=== PATIENT | female | born 1985 | race Caucasian/White ===

== ENCOUNTER → 2017-05-10 | Outpatient (CLI) | payer BC ==
[~2017-05-10] MED LIST: MTR600X PO; OXYC-57 PO; PRENTAB26 PO
[2017-05-10 16:42] LABS: BASO % 0.1 %; BASO ABS # 0.01 K/uL (0-0.2); EOS % 2.5 %; EOS ABS # 0.24 K/uL (0-0.5); HEMATOCRIT 32.5 % (37-47); IG# 0.04 K/uL (0.00-0.02); LYMPH % 18.4 %; LYMPH ABS # 1.74 K/uL (1.2-3.4); MEAN CORPUSCULAR HEMOGLOBIN 28.4 pg (25-34); MEAN CORPUSCULAR HGB CONC 33.8 g/dl (32-36); MEAN PLATELET VOLUME 9.7 fL (7.4-10.4); MONO ABS # 0.66 K/uL (0.11-0.59); NEUT % 71.6 %; NEUT ABS # 6.77 K/uL (1.4-6.5); PLATELET COUNT 257 K/uL (130-400); RED CELL DISTRIBUTION WIDTH CV 14.6 % (11.5-14.5); RED CELL DISTRIBUTION WIDTH SD 44.7 fL (36.4-46.3); WHITE BLOOD COUNT 9.46 K/uL (4.8-10.8)
[2017-05-10 16:49] LABS: ALT/SGPT 17 U/L (12-78); AST/SGOT 12 U/L (15-37); CREATININE 0.63 mg/dl (0.60-1.20); URIC ACID 3.6 mg/dl (2.6-7.2)
== END | disposition home or self-care (01) ==
LOC: C.LAB1850 15:37
PROVIDERS: ATTEND Obstetrics & Gynecology
DX: O10.919 Unspecified pre-existing hypertension complicating pregnancy, unspecified trimester (principal); Z3A.00 Weeks of gestation of pregnancy not specified

== ENCOUNTER 2017-06-08 16:11 | Observation (INO) | payer BC ==
[~2017-06-08] VITALS: Ht 175.3 cm; Wt 85.0 kg
[2017-06-08 16:43] LABS: BASO % 0.2 %; BASO ABS # 0.02 K/uL (0-0.2); EOS % 1.3 %; EOS ABS # 0.13 K/uL (0-0.5); HEMATOCRIT 33.6 % (37-47); HEMOGLOBIN 11.1 g/dL (12.0-16.0); IG# 0.05 K/uL (0.00-0.02); LYMPH % 17.2 %; LYMPH ABS # 1.72 K/uL (1.2-3.4); MEAN CELL VOLUME 83.6 fL (80-100); MEAN CORPUSCULAR HEMOGLOBIN 27.6 pg (25-34); MEAN PLATELET VOLUME 9.2 fL (7.4-10.4); MONO % 8.5 %; MONO ABS # 0.85 K/uL (0.11-0.59); NEUT % 72.3 %; NEUT ABS # 7.22 K/uL (1.4-6.5); PLATELET COUNT 246 K/uL (130-400); RED CELL DISTRIBUTION WIDTH CV 14.5 % (11.5-14.5); RED CELL DISTRIBUTION WIDTH SD 44.7 fL (36.4-46.3); WHITE BLOOD COUNT 9.99 K/uL (4.8-10.8)
[2017-06-08 17:07] VITALS: Ht 175.3 cm; Wt 85.0 kg
[2017-06-08 17:07] LABS: ALT/SGPT 19 U/L (12-78); AST/SGOT 12 U/L (15-37); CREATININE 0.67 mg/dl (0.60-1.20)
[2017-06-08] MEDS ORDERED: IV FLUIDS COMPLETED PRN (19:15)
--- NOTE | 2017-06-09 20:20 | DISCHARGE SUMMARY ---
ADMISSION DIAGNOSES: 1. A 28-week intrauterine . 2. Chronic hypertension. 3. Gestational diabetes. 4. Elevated blood pressures. DISCHARGE DIAGNOSES: Same. BRIEF HISTORY AND HOSPITAL COURSE: A 31-year-old 4, para 3-0-0-3, who came for her routine visit on 06/08/2017 and was 28-weeks and 5 days gestation. Her blood pressure on arrival was 164/102 followed by a repeat blood pressure after resting of 142/100. She had +1 protein. She was sent for further evaluation to labor and delivery. She was accepted in evaluation by Dr. Mckeon, who performed laboratory testing as well as serial blood pressures. The laboratory testing showed a hemoglobin of 11.1, a platelet count of 246, a creatinine of 0.6. Normal AST and ALT and a protein to creatinine ratio in her urine of 0.1. He discussed the patient's case with maternal medicine at [facility] and they recommended close observation for 24 hours and obtaining a 24-hour urine protein as well as monitoring serial pressures. I came on-call on 06/09/2017 and was informed of the patient's status and the plan. Her blood pressures had improved during her course in labor and delivery. They ranged from 119-143/81-98. Many of these blood pressures were taken sitting. Her total urine protein ended up returning less than 300 mg with a normal creatinine. The patient was completely asymptomatic. The question that had been raised after she was seen in the office on 06/08/2017 and apparently was posed to maternal medicine was whether the patient required initiation of any blood pressure agent. Due to her fairly normal blood pressures, that were consistent with her diagnosis of chronic hypertension, but not severe, no antihypertensive medicines were initiated. The patient was given her discharge instructions to monitor for any signs and symptoms of persistent headache, right upper quadrant pain, sudden worsening swelling, any visual changes. She was to call with any of these concerns or any other obstetric concerns. She already had a plan to see dietary for management of her gestational diabetes, which had been present in her past pregnancies and for which she was to be monitoring her sugars this . She is already undergoing serial ultrasounds for growth. She is aware that plan of care may change to weekly appointments at this point. We will notify her after discussion at our group meeting on Sunday. There was no evidence of worsening chronic hypertension nor superimposed preeclampsia at the end of our evaluation today. MTDD
== END 2017-06-09 19:15 | disposition home or self-care (01) ==
LOC: C.OPB 16:11 → C.LD 16:11 → C.OPB 17:40
PROVIDERS: ADMIT Obstetrics & Gynecology; ATTEND Obstetrics & Gynecology
DX: O10.913 Unspecified pre-existing hypertension complicating pregnancy, third trimester (principal); O24.419 Gestational diabetes mellitus in pregnancy, unspecified control; Z3A.28 28 weeks gestation of pregnancy

== ENCOUNTER → 2017-08-03 | Outpatient (CLI) | payer BC ==
[~2017-08-03] MED LIST changes: -MTR600X PO; -OXYC-57 PO
== END | disposition home or self-care (01) ==
LOC: C.LABSPEC 15:41
PROVIDERS: ATTEND Obstetrics & Gynecology
DX: O09.93 Supervision of high risk pregnancy, unspecified, third trimester (principal); Z3A.00 Weeks of gestation of pregnancy not specified

== ENCOUNTER 2017-08-16 07:56 | Inpatient (IN) | payer BC ==
[~2017-08-16] VITALS: Ht 175.3 cm; Wt 87.3 kg
[2017-08-16] MEDS ORDERED: LACTATED RINGER'S 1000ML 1,000 ML IV PRN (08:03)
[2017-08-16] MEDS ORDERED: LACTATED RINGER'S 1000ML 1,000 ML IV SCH (08:03)
[2017-08-16 08:30] LABS: HEMATOCRIT 32.8 % (37-47); HEMOGLOBIN 11.1 g/dL (12.0-16.0); MEAN CELL VOLUME 81.8 fL (80-100); MEAN CORPUSCULAR HEMOGLOBIN 27.7 pg (25-34); MEAN CORPUSCULAR HGB CONC 33.8 g/dl (32-36); MEAN PLATELET VOLUME 9.8 fL (7.4-10.4); PLATELET COUNT 229 K/uL (130-400); RED CELL DISTRIBUTION WIDTH CV 15.4 % (11.5-14.5); RED CELL DISTRIBUTION WIDTH SD 45.4 fL (36.4-46.3); WHITE BLOOD COUNT 9.51 K/uL (4.8-10.8)
[2017-08-16] MEDS ORDERED: LACTATED RINGER'S 1000ML 500 ML IV PRN (08:41)
[2017-08-16] MEDS ORDERED: OXYTOCIN 30 UNITS/500ML NSS IV PRN ×2 (08:45→13:45)
[2017-08-16 09:13] VITALS: Ht 175.3 cm; Wt 87.3 kg
[2017-08-16 09:19] LABS: ALBUMIN 2.6 gm/dl (3.4-5.0); CALCIUM 8.4 mg/dl (8.5-10.1); CREATININE 0.8 mg/dl (0.60-1.20); POTASSIUM 3.8 mmol/L (3.5-5.1); TOTAL PROTEIN 7.1 gm/dl (6.4-8.2)
[2017-08-16] MEDS ORDERED: LABETALOL HCL 100 MG TAB PO ONE (13:45)
[2017-08-16] MEDS ORDERED: LANOLIN OINT EXT PRN (13:45)
[2017-08-16] MEDS ORDERED: BENZOCAINE 20% AER SPR 82.5 GM CAN EXT PRN (13:45)
[2017-08-16] MEDS ORDERED: OXYCODONE/ACETAMINOPHEN 5-325 TAB PO PRN (13:45)
[2017-08-16] MEDS ORDERED: ACETAMINOPHEN 325 MG TAB PO PRN (13:45)
[2017-08-16] MEDS ORDERED: SUPERCREAM 0.870 % 15GM JAR EXT PRN (13:45)
[2017-08-16] MEDS ORDERED: IBUPROFEN 600 MG TAB PO PRN (13:45)
--- NOTE | 2017-08-16 13:52 | DELIVERY SUMMARY ---
DATE OF OPERATION: 08/16/2017 The patient is a 32-year-old 4 para 3-0-0-3 white female EDC of 08/26/2017 who presents for induction of labor because of chronic hypertension. She was begun on Pitocin and once she was 5 cm dilated and -2 station membranes were ruptured for clear fluid. She then progressed rapidly to full dilation. She pushed effectively over intact perineum for delivery of a viable female . Mouth and nasopharynx were suctioned on the perineum. The rest of the delivered easily, was placed on the mother's abdomen for further attention and stimulation. There was vigorous crying and the infant was moving all four limbs. The cord was then clamped and cut. Placenta was then expressed intact with 3-vessel cord. There was a 200 cc blood loss. There was no appreciable tears or lacerations. Mother and were doing well after delivery. I attest to the content of the Intraoperative Record and any orders documented therein. Any exception s are noted below.
[2017-08-16 16:30] VITALS: BP 142/82; PULSE 80; TEMP 36.6
[2017-08-16 19:20] VITALS: BP 142/82; PULSE 88; TEMP 36.6
[2017-08-16] MEDS: DOCUSATE SODIUM 100 MG CAP PO SCH (19:36)
[2017-08-16] MEDS: LABETALOL HCL 100 MG TAB PO SCH (19:56)
[2017-08-16] MEDS ORDERED: LABETALOL HCL 100 MG TAB PO SCH (20:00)
[2017-08-16 23:00] VITALS: BP 132/84; PULSE 61; TEMP 36.5
[2017-08-17 03:50] VITALS: BP 137/89; PULSE 69; TEMP 36.5
[2017-08-17 05:44] LABS: HEMATOCRIT 29.1 % (37-47); HEMOGLOBIN 9.7 g/dL (12.0-16.0)
--- NOTE | 2017-08-17 06:39 | Progress Note ---
Subjective August 17, 2017. Subjective conversation w/ patient Ambulation: ambulating normally Voiding: no voiding problems Diet Tolerance: Regular Diet Lochia: Moderate Feeding Type: Breast Feeding Pain: 1/10 abdominal cramping with breast feeding Review of Systems Constitutional: No fever, No chills Respiratory: No shortness of breath Cardiac: No chest pain Abdomen: No nausea, No vomiting Objective Vital Signs Date Time Temp Pulse Resp B/P (MAP) Pulse Ox O2 Delivery O2 Flow Rate FiO2 08/17/17 03:50 36.5 69 18 137/89 (105) Room Air 08/16/17 23:00 36.5 61 18 132/84 (100) Room Air 08/16/17 23:00 Room Air 08/16/17 19:20 36.6 88 18 142/82 (102) Room Air 08/16/17 16:30 36.6 80 20 142/82 (102) Room Air 08/16/17 16:30 Room Air Physical Exam General Appearance: WELL-APPEARING, WD/WN, NO APPARENT DISTRESS Abdomen: soft Fundus: Firm, Non-Tender, Relation to Umbilicus (at u) Extremities: no pedal edema, no calf tenderness Laboratory Results Last 24 Hours Test 08/16/17 08:18 08/17/17 05:26 White Blood Count 9.51 K/uL Red Blood Count 4.01 M/uL Hemoglobin 11.1 g/dL 9.7 g/dL Hematocrit 32.8 % 29.1 % Mean Corpuscular Volume 81.8 fL Mean Corpuscular Hemoglobin 27.7 pg Mean Corpuscular Hemoglobin Concent 33.8 g/dl RDW Standard Deviation 45.4 fL RDW Coefficient of Variation 15.4 % Platelet Count 229 K/uL Mean Platelet Volume 9.8 fL Sodium Level 140 mmol/L Potassium Level 3.8 mmol/L Chloride Level 111 mmol/L Carbon Dioxide Level 22 mmol/L Anion Gap 7.0 mmol/L Blood Urea Nitrogen 9 mg/dl Creatinine 0.80 mg/dl Est Creatinine Clear Calc Drug Dose 117.9 ml/min Estimated GFR () 112.3 Estimated GFR (Non- 96.9 BUN/Creatinine Ratio 11.8 Random Glucose 75 mg/dl Calcium Level 8.4 mg/dl Total Bilirubin 0.3 mg/dl Aspartate Amino Transf (AST/SGOT) 19 U/L Alanine Aminotransferase (ALT/SGPT) 19 U/L Alkaline Phosphatase 143 U/L Total Protein 7.1 gm/dl Albumin 2.6 gm/dl Globulin 4.5 gm/dl Albumin/Globulin Ratio 0.6 Assessment and Plan Post- Day#: 1 Continue Routine Care: Resident Physician Supervision Note: I was present with Dr. Tripathi during the history and exam. I discussed the case with the resident and agree with the findings and plan as documented in the note. Any exceptions or clarifications are listed here: [None] Documented By: Milla Serna 32F with a history of hypertension and GDM s/p NVD day 1 - A+, Rubella equivocal, GBS -ve - pt doing very well clinically - Vital signs reviewed - pt had two high readings of 142/82 yesterday but has been normal today - will monitor - Hemoglobin reviewed. 11.1 -> 9.7 - Encourage ambulation and - pt will require MMR prior to d/c - Pt ready for d/c today and counselled on discharge instructions - continue 50mg of labetalol until 6 week visit Resident Tracking Resident Involvement: Resident Care Provided Care Provided: OB Delivery
[2017-08-17] MEDS ORDERED: MEASLES, MUMPS & RUBELLA VIRUS VIAL SQ. ONE (06:45)
--- NOTE | 2017-08-17 06:48 | Discharge Instructions ---
Discharge Instructions Date of Service August 17, 2017. Admission Reason for Admission: Induction Discharge Discharge Diagnosis / Problem: Vaginal Delivery Discharge Goals Goal(s): Routine recovery after delivery Medications Continue Dispensed Medications: supercream, dermaplast, tucks, lansinoh Activity Recommendations Activity Limitations: per Instructions/Follow-up section . Instructions / Follow-Up Instructions / Follow-Up ACTIVITY RECOMMENDATIONS: * Gradual return to full activity over the next 2-3 weeks. * No lifting - nothing heavier than baby over the next 2-3 weeks. * Do not engage in vigorous exercise, sexual activity or sports until cleared by your physician. * Do not drive or operate any motorized equipment until cleared by your physician. * You may shower/bathe daily. MEDICATIONS: For discomfort or pain, you may use Acetaminophen (Tylenol), Ibuprofen (Advil), or Naproxen (Aleve) following the package directions. For constipation you may use Colace following the package directions. BREAST CARE: If you are not breast feeding: * Wear a supportive bra 24 hours a day for one to two weeks. * Avoid stimulating your breasts and nipples as much as possible during the first few weeks after delivery. * When taking a shower, have the warm water hit your back, not breasts. * When your breasts feel full, apply ice packs. Usually three to four times a day helps ease the discomfort. * Take a mild pain medication (Tylenol / Motrin) when you are uncomfortable. If breast feeding: * Use breast milk to lubricate nipples. Lansinoh cream may be used for sore nipples. You do not need to remove cream prior to breast feeding. If using a different brand of cream, check the label for directions regarding removal of cream prior to nursing. * Wear a supportive bra. * If having problems with breasts or breast feeding, call a credit consultant or your health care provider. EPISIOTOMY CARE: After delivery, if you have an episiotomy (stitches), the following steps will ease discomfort and aid healing. * For the first 24 hours after delivery, place ice packs next to your episiotomy to help reduce swelling. * After the first 24 hour-period, sitz baths, either portable or in the tub, are suggested. A shower with a shower arm sprayed over the episiotomy may be comforting. * Mirtha care should be done after each voiding and bowel movement. Squirt warm water from a plastic bottle over the perineum (region of the body between the anus and urinary opening) and pat dry. * Use Dermoplast to ease discomfort. Shake container. Outlook directly over the episiotomy. Place a Tucks on a clean sanitary pad next to your episiotomy. SPECIAL CARE INSTRUCTIONS: When you are discharged from the hospital, it is important for you to follow the instructions listed below: * During the first week at home, you should be able to care for yourself and your baby. In addition, the usual light household activities are encouraged. * Limit your activities to the way you feel. Do not try to clean the house or move furniture. Be sensible. * If you actively engage in sports and have done so up until the time of your delivery, you may resume these activities as soon as you feel able. This may take up to one month or even longer. Use good judgment. * Continue to take your vitamins for at least six weeks after the of your baby. * Your diet need not be limited unless you were on a special diet before your delivery. Breast-feeding mothers need around 2500 calories per day and at least 64-80 ounces of fluid per day (8 to 10 glasses). * You should eat foods from the four major food groups. Crash diets or fad diets are to be avoided. Eating lean meats, fresh fruits and vegetables, low-fat dairy products, high fiber foods and a regular exercise program, will help you get back to your pre- weight without putting your health at risk. * Constipation is sometimes a problem after delivery. Take a mild laxative as needed. If breast feeding, Milk of Magnesia is acceptable to use. You may use a suppository or Fleets enema if no episiotomy. * A daily shower or tub bath is suggested. Be sure to thoroughly and gently dry the perineum. * A bloody vaginal discharge will usually continue until around four weeks post . A small amount of bleeding may continue for as long as six weeks. Vaginal discharge changes from the bright red bleeding after delivery to pink then brownish and finally yellowish-pink before becoming white and disappearing. * Bleeding may increase with activity. Your first period may come in 4-8 weeks. If you are breast feeding, your period may be delayed even longer. * [place] (sex) can begin whenever both you and your partner feel comfortable and do not have any form of genital infection. It is recommended that you wait at least six weeks for internal and external healing to occur. If you have questions, please talk to your health care practitioner. A condom should be used to prevent infection and . * Foreplay, gentle intercourse and lubrication is very important the first several times to prevent pain. A water-based lubricant such as K-Y jelly or Astroglide may be used. * If you have RH negative blood and your baby is RH positive, you will receive RHOGAM by injection prior to discharge. The nurse will give you a card to keep with you that has the date and place that you received RHOGAM after delivery. * During your care, you had a Rubella screen done to check for the presence of rubella antibodies in your blood. If your test was negative, you will receive a Rubella vaccine prior to discharge. This vaccine may cause a fever, soreness at the injection site and flu-like symptoms. If these symptoms persist, notify your health care practitioner. is not advised for one month after a Rubella vaccine. * Verbalizes understanding of car seat law as reviewed with patient nursing. * Car Seat hand-out given and reviewed with patient by nursing. * Shaken baby information reviewed with patient by nursing. Call you doctor if: * Heavy bleeding (saturating several pads an hour) or passing clots the size of your fist. * A fever >101 degrees F (38.3 degrees C) on two occasions four hours apart and /or chills. * Unusual pain in the pelvic or vaginal areas. * "Baby Blues" lasting longer than two weeks. If you have any questions or concerns, call your health care practitioner at . FOLLOW UP VISIT: * Please call the office at to schedule a 6 week examination. It is important you keep this appointment. It is important for you to make arrangements for either yearly or twice yearly check-ups thereafter. Current Hospital Diet Patient's current hospital diet: Regular OB Diet Discharge Diet Recommended Diet: Regular Diet Pending Studies Studies pending at discharge: no Medical Emergencies . Who to Call and When: Medical Emergencies: If at any time you feel your situation is an emergency, please call [phone] immediately. . Non-Emergent Contact Non-Emergency issues call your: Primary Care Provider . . "Provider Documentation" section prepared by Petar Jenkins. .
[2017-08-17 07:25] VITALS: BP 142/88; PULSE 79; TEMP 36.5; O2SAT 99
[2017-08-17] MEDS ORDERED: PRENATAL VITAMIN TAB PO SCH (08:00)
[2017-08-17] MEDS: DOCUSATE SODIUM 100 MG CAP PO SCH (08:51)
[2017-08-17] MEDS: LABETALOL HCL 100 MG TAB PO SCH (08:51)
[2017-08-17 13:10] VITALS: BP 146/89; PULSE 80; TEMP 36.5; O2SAT 97
[2017-08-17 15:30] VITALS: BP 149/88; PULSE 77; TEMP 36.7; O2SAT 100
[2017-08-17 17:20] VITALS: BP_DIAS 88; PULSE 77; TEMP 36.7
[2017-08-17] MEDS ORDERED: BISACODYL 5 MG TABEC PO SCH (20:00)
== END 2017-08-17 17:35 | disposition home or self-care (01) | DRG 774 ==
LOC: C.LD 07:56 → C.OBG 16:19
PROVIDERS: ADMIT Obstetrics & Gynecology; ATTEND Obstetrics & Gynecology
PROC: 3E030VJ Introduction of Other Hormone into Peripheral Vein, Open Approach (ICD-10-PCS; principal; 2017-08-16)
PROC: 10E0XZZ Delivery of Products of Conception, External Approach (ICD-10-PCS; principal; 2017-08-16)
PROC: 10903ZC Drainage of Amniotic Fluid, Therapeutic from Products of Conception, Percutaneous Approach (ICD-10-PCS; principal; 2017-08-16)
DX: O10.92 Unspecified pre-existing hypertension complicating childbirth (principal); O24.420 Gestational diabetes mellitus in childbirth, diet controlled; Z86.39 Personal history of other endocrine, nutritional and metabolic disease; Z3A.38 38 weeks gestation of pregnancy; Z37.0 Single live birth